=== PATIENT | female | born 1980 | race American Indian/Alaskan Native ===

== ENCOUNTER 2018-02-20 16:54 | Emergency (ER) | payer SELFPAY ==
--- NOTE | 2018-02-20 21:17 | Emergency Department Report ---
ED General Adult HPI - General Chief complaint: Skin/Abscess/Foreign Body Stated complaint: LUMP BEHIND R EAR Time Seen by Provider: 02/20/18 21:16 Source: patient, RN notes reviewed Mode of arrival: Ambulatory Limitations: No Limitations - History of Present Illness Initial comments: This is a 37-year-old female. The patient is previously unknown to this provider. She reports that she is not . She presents to the ER with right posterior cervical swelling which has been present for months, it is getting worse gradually over the past few weeks. There is a little bit of redness and there is a little bit of discomfort. No other complaints. She reports having a "cyst" there in the past, and reports having it surgically removed in the past. No other issues, no other complaints. -: Gradual, week(s), month(s) Location: neck Radiation: non-radiation Quality: aching Consistency: intermittent Improves with: rest Worsens with: movement Associated Symptoms: denies other symptoms - Related Data Allergies Allergy/AdvReac Type Severity Reaction Status Date / Time No Known Allergies Allergy Unverified 02/20/18 17:22 ED Review of Systems ROS: Stated complaint: LUMP BEHIND R EAR Other details as noted in HPI Comment: All other systems reviewed and negative ED Past Medical Hx - Past Medical History Previous Medical History?: No - Surgical History Additional Surgical History: - Social History Smoking Status: Never Smoker Substance Use Type: None ED Physical Exam - General Limitations: No Limitations General appearance: alert, in no apparent distress - Head Head exam: Present: atraumatic, normocephalic - Eye Eye exam: Present: normal appearance, PERRL, EOMI. Absent: nystagmus - ENT ENT exam: Present: normal exam, normal orophraynx, mucous membranes moist, TM's normal bilaterally, normal external ear exam - Neck Neck exam: Present: normal inspection, full ROM, other (inferior to the ear, on the right side, there is a 2 x 2 circumscribed area with minimal erythema, and fluctuance. There is no induration. Minimal tenderness. Speaking in full sentences. No stridor.). Absent: tenderness, meningismus, lymphadenopathy, thyromegaly - Respiratory Respiratory exam: Present: normal lung sounds bilaterally. Absent: respiratory distress - Cardiovascular Cardiovascular Exam: Present: regular rate, normal rhythm, normal heart sounds. Absent: systolic murmur, diastolic murmur, rubs, gallop - GI/Abdominal GI/Abdominal exam: Present: soft, normal bowel sounds. Absent: distended, tenderness, guarding, rebound, rigid, pulsatile mass - Extremities Exam Extremities exam: Present: normal inspection, full ROM - Back Exam Back exam: Present: normal inspection, full ROM. Absent: paraspinal tenderness , vertebral tenderness - Neurological Exam Neurological exam: Present: alert, oriented X3, CN II-XII intact, other ( Extraocular movements intact. Tongue midline. No facial droop. Facial sensation intact to light touch in the V1, V2, V3 distribution bilaterally. 5 and 5 strength in 4 extremities.. Sensation is intact to light touch in 4 extremities.). Absent: motor sensory deficit - Psychiatric Psychiatric exam: Present: normal affect, normal mood - Skin Skin exam: Present: warm, dry, intact, normal color, erythema. Absent: rash ED Course Vital Signs 02/20/18 17:20 Temperature 98 F Pulse Rate 73 Respiratory 18 Rate Blood Pressure 144/90 O2 Sat by Pulse 100 Oximetry - I & D Right Posterior Medial Neck Type of Procedure: Simple Site: right neck Blade Size: 11 I & D Procedure: betadine prep Progress: Informed consent was obtained from the patient verbally after discussing risks, benefits, alternatives. The site was aseptically prepped with Betadine, and then infiltrated with 3 mL of 2% lidocaine without epinephrine superficially. A 22-gauge needle was then inserted into the cyst, and 1 mL of serous nonpurulent fluid was withdrawn. A stab incision was then made using an 11 blade, and serous nonpurulent material was expressed. The patient tolerated the procedure well. ED Medical Decision Making - Lab Data Vital Signs 02/20/18 17:20 Temperature 98 F Pulse Rate 73 Respiratory 18 Rate Blood Pressure 144/90 O2 Sat by Pulse 100 Oximetry - Medical Decision Making Differential diagnosis, including but not limited to: Abscess, sebaceous cyst Assessment and plan: 37-year-old female with probable recurrent sebaceous cyst. It has been drained with needle aspiration and incision and drainage. It is currently coverage. Patient does not require oral antibiotics at this time. She can follow up with outpatient dermatology, otolaryngology or plastic surgery for elective outpatient cyst removal. Critical care attestation.: If time is entered above; I have spent that time in minutes in the direct care of this critically ill patient, excluding procedure time. ED Disposition Clinical Impression: Cyst of neck Disposition: DC-01 TO HOME OR SELFCARE Is pt being admited?: No Does the pt Need Aspirin: No Condition: Stable Instructions: Skin Pseudocyst (ED) Additional Instructions: Apply warm compresses to the affected area. Wash with gentle soap and water at least every 12 hours. Keep dry and covered during the day. Take Tylenol and ibuprofen [id number] alternating with food as needed for pain. Follow-up with either a plastic surgeon, rolled materials worker will otolaryngology specialist within the next 4-6 weeks for elective outpatient cyst removal. Return to the ER right away with new pain, worsened pain, migration of pain, fevers, chills, lethargy, irritability, projectile vomiting, change in mental status, confusion, inability to tolerate liquid feeds. Referrals: LALITA LATIF MD [Primary Care Provider] - 3-5 Days REKHA GONZALEZ MD [Staff Physician] - 3-5 Days AMOL TRISTAN MD [Staff Physician] - 3-5 Days ARTURO BROWN MD [Staff Physician] - 3-5 Days
[2018-02-20] MEDS ORDERED: XYLOCAINE 1% MPF 5 mL ONE (22:09)
[2018-02-20] MEDS: XYLOCAINE 2% INFILTRATI ONE (22:52)
[2018-02-20 22:54] VITALS: BP 134/80
[2018-02-21] MEDS: XYLOCAINE 2% INFILTRATI ONE (01:17)
[2018-02-21] MEDS ORDERED: XYLOCAINE 1% MPF 5 mL INFILTRATI ONE (01:17)
== END 2018-02-20 22:54 | disposition home or self-care (01) ==
LOC: ED 16:54
DX: L72.3 Sebaceous cyst (principal)